=== PATIENT | female | born 1970 | race African-American/Black ===

== ENCOUNTER 2018-05-06 10:29 | Emergency (ER) | payer SELFPAY ==
--- NOTE | 2018-05-06 12:13 | ED Physician Documentation ---
Upper Respiratory Symptoms - HISTORIAN Historian: patient - HPI Stated Complaint: CC Chief Complaint: Upper Respiratory Symptoms Onset: days ago (2) Associated Symptoms: chills, sinus pain, sinus drainage, sore throat, productive cough, headache. denies: sweating, earache, runny nose, chest pain, bloody cough, shortness of breath, hurts to breathe Further Comments: yes (48 year old female patient presents with complaints cough, congestion, body aches and not feeling well for the past few days. Patient states she works 3 jobs, is very tired, has not slept well.) - ROS CONST/EYES: denies: weakness CVS/RESP: none LYMPH: denies: leg swelling, rash, swollen glands, ankle swelling NEURO/PSYCH: denies: fainting, dizziness, confusion, anxiety, depression, other MS/SKIN: denies: joint pain, muscle aches, rash, other - PAST HX Lung Disease: none Allergies/Adverse Reactions: Allergies Allergy/AdvReac Type Severity Reaction Status Date / Time No Known Allergies Allergy Verified 10/29/15 00:46 Home Medications: Ambulatory Orders Medication Instructions Recorded Levofloxacin [Levaquin] 500 mg PO DAILY #10 tablet 05/06/18 - SOCIAL HX Smoking History: non-smoker - FAMILY HX Family History: denies: none - VITAL SIGNS Vital Signs: Vital Signs Temp Pulse Resp BP Pulse Ox 98.3 F 80 22 129/74 97 05/06/18 10:55 05/06/18 10:55 05/06/18 10:55 05/06/18 10:55 05/06/18 10:55 - REVIEWED ASSESSMENTS Nursing Assessment Reviewed: Yes Vitals Reviewed: Yes ED Results Lab/Radiology - Orders Orders: ED Orders Category Date Time Status INFLUENZA A&B Stat Lab 05/06/18 10:51 Uncollected Upper Respiratory Symptoms - EXAM General Appearance: mild distress (ill appearing) EENT: lids & conjunct. nml, PERRL, ear nml, pain over sinuses, frontal, maxillary, ethmoid, mucosal edema, purulent nasal drainage, pharyngeal erythema Respiratory: no resp. distress, breath sounds nml, no pain on inspiration, speaks full sentences, no pleuritic chest pain Abdomen: non-tender, no organomegaly, nml bowel sounds, no distention CVS: reg rate & rhythm, heart sounds normal, equal pulses, no murmur, no gallop, PMI nml, no JVD, no friction rub, 24 Skin: color nml, no rash, warm,dry Extremities: non-tender, normal range of motion, no evidence of injury, no edema, J, GENERATOR TECHNICIAN Neuro/Psych: oriented x3, neuro intact, mood/affect nml, CN's nml as tested Discharge Clincal Impression: Acute pansinusitis Qualifiers: Recurrence: non-recurrent Qualified Code(s): J01.40 - Acute pansinusitis, unspecified Prescriptions: Levofloxacin [Levaquin] 500 mg PO DAILY #10 tablet Referrals: Primary Doctor,No [Primary Care Provider] - 2 Days Additional Instructions: 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 Treat your symptoms with over the counter medication. You may want to try Vicks rub on your chest and/or feet Cough drops as needed for cough and sore throat. Increase your fluid intake juices, hot tea, non-caffeinated beverages Use a humidifier in the room where you sleep. You can also sit in a steam filled bathroom 1-2 times a day. Tylenol or Ibuprofen as needed for fever, pain and body aches. Start daily allergy medication such as Claritin, Karne or Zyrtec. Start a daily nasal spray such as Flonase or Nasonex You may benefit from the use of a netti pot follow package instructions. See your primary care doctor after you have completed your antibiotic if you symptoms have not resolved. Many times it takes multiple rounds of antibiotics to resolve a sinus infection. Condition: Stable Disposition: 01 HOME, SELF-CARE Decision to Admit: NO Decision Time: 12:12
[2018-05-06 12:19] VITALS: BP 111/59
== END 2018-05-06 12:18 | disposition home or self-care (01) ==
LOC: ED 10:29
DX: J01.40 Acute pansinusitis, unspecified (principal)
CPT/HCPCS: 99283

== ENCOUNTER 2018-11-13 14:06 | Emergency (ER) | payer SELFPAY ==
[2018-11-13 14:18] VITALS: BP 128/79
--- NOTE | 2018-11-13 14:37 | ED Physician Documentation ---
Low Back Pain - HISTORIAN Historian: patient - HPI Stated Complaint: back pain Chief Complaint: Low Back Pain/ Injury Additional Information: Patient presents to ER with a 2 week history of low back pain. She denies injury. History: history of chronic pain:, back pain Onset: days ago (14) Duration: continues in ED Recent Injury: No Context: lifting Where: home Severity: mild Quality: sharp, similar- prior back pain Associated Symptoms: denies: fever Worsened By:: supine, upright position Relieved By: nothing - ROS CONST: no problems CVS/RESP: none EYES/ENT: none MS/SKIN/LYMPH: none Neuro/Psych: none GI/: denies: abdominal pain - PAST HX Past History: back pain Surgeries/Procedures: none Allergies/Adverse Reactions: Allergies Allergy/AdvReac Type Severity Reaction Status Date / Time No Known Allergies Allergy Verified 11/13/18 14:20 Home Medications: Ambulatory Orders Medication Instructions Recorded Cyclobenzaprine HCl [Flexeril] 10 mg PO TID PRN #30 tablet 11/13/18 predniSONE [Deltasone] 20 mg PO DIRECTED #9 tablet 11/13/18 - SOCIAL HX Smoking History: non-smoker Alcohol Use: none Drug Use: none - FAMILY HX Family History: none - VITAL SIGNS Vital Signs: Vital Signs Temp Pulse Resp BP Pulse Ox 96.9 F L 80 19 128/79 100 11/13/18 14:13 11/13/18 14:13 11/13/18 14:13 11/13/18 14:13 11/13/18 14:13 - REVIEWED ASSESSMENTS Nursing Assessment Reviewed: Yes Vitals Reviewed: Yes Low Back Pain/Injury - Physical Exam General Appearance: no acute distress, alert EENT: TISHA Neck: non-tender Resp/CVS: chest non-tender, breath sounds nml, heart sounds nml Abdomen: non-tender Back: other (tenderness L5 level on either side of spine) Straight Leg Raising: Negative Left, Negative Right Neuro/Psych: oriented x3, motor nml, sensation nml Skin: warm/dry, normal color Extremities: non-tender, no evidence of injury Discharge Clincal Impression: Low back pain Qualifiers: Chronicity: acute Back pain laterality: bilateral Sciatica presence: without sciatica Qualified Code(s): M54.5 - Low back pain Prescriptions: Cyclobenzaprine HCl [Flexeril] 10 mg PO TID PRN #30 tablet PRN Reason: muscle spasm/back pain predniSONE [Deltasone] 20 mg PO DIRECTED #9 tablet Referrals: Primary Doctor,No [Primary Care Provider] - 2 Days Additional Instructions: 1. Tylenol and/or Ibuprofen as needed for pain 2. Flexeril as needed for pain/muscle spasm. This medication will cause drowsiness 3. Apply ice/heat to affected area as needed for comfort 4. Remain active. 5. Follow up with PCP within 1 week 6. Return to ER for new or worsening symptoms. Condition: Stable Disposition: 01 HOME, SELF-CARE Decision to Admit: NO Date of Decison to Admit: 11/13/18 Decision Time: 14:45
== END 2018-11-13 14:47 | disposition home or self-care (01) ==
LOC: ED 14:06
DX: M54.5 Low back pain (principal)
CPT/HCPCS: 99282; 99283